=== PATIENT | female | born 1940 | race Caucasian/White ===

== ENCOUNTER 2018-11-04 07:41 | Inpatient (IN) | payer MEDICARE, BC ==
[~2018-11-04] VITALS: Ht 162.6 cm; Wt 75.0 kg
[~2018-11-04 07:41] MED LIST: ALBU2.5V7 NEB; ASCO-205 PO; ATOR80TA PO; BIOT0.5P PO; CALC-1197 PO; ERGO400C PO; EZET10TA14 PO; GUAI-652 PO; HYDR-4353 PO; INSU100C4 SQ; LANTUS SUBCUT; LEVO137T24 PO; LEVO500T2 PO; LOSA100T15 PO; LYSI100013 PO; MAGN400T39 PO; META800T87 PO; MULT-1074 PO; OMEG1CAP21 PO; OXYB5TAB11 PO; TRIA1CAP6 PO; VITA400C65 PO; ZINC50TA4 PO; [UNRECOGNIZED DRUG - CODE] PO
[2018-11-04 08:14] LABS: BASOPHILS % (AUTO) 0.3 % (0-1); EOSINOPHILS # (AUTO) 0.2 X10'3 (0-0.9); EOSINOPHILS % (AUTO) 1.9 % (0-6); HEMOGLOBIN 13.4 g/dl (12.0-16.0); LYMPHOCYTES # (AUTO) 0.9 X10'3 (1.1-4.8); LYMPHOCYTES % (AUTO) 7.7 % (21-51); MEAN CORPUSCULAR HGB CONC 33.5 % (33.0-36.5); MEAN CORPUSCULAR VOLUME 89.3 FL (78-98); MEAN PLATELET VOLUME 7.8 FL (7.4-10.4); MONOCYTES # (AUTO) 1.1 X10'3 (0-0.9); MONOCYTES % (AUTO) 9.5 % (2-12); NEUTROPHILS # (AUTO) 9.4 X10'3 (1.8-7.7); NEUTROPHILS % (AUTO) 80.6 % (42-75); PLATELET COUNT 299 X10'3 (140-440); RED BLOOD COUNT 4.48 X10'6 (4.20-5.60); RED CELL DISTRIBUTION WIDTH 13.9 % (11.5-14.5); WHITE BLOOD COUNT 11.7 X10'3 (4.5-11.0)
[2018-11-04 08:23] LABS: CLARITY,URINE SLIGHTLY CLOUDY (Clear); COLOR,URINE YELLOW (Yellow); GLUCOSE, URINE >=1000 mg/dl (Neg); KETONES,URINE 40 mg/dl (Neg); LEUKOCYTE ESTERASE ,URINE NEGATIVE (Neg); NITRITES, URINE POSITIVE (Neg); OCCULT BLOOD,URINE SMALL (Neg); PROTEIN,URINE NEGATIVE (Neg); UROBILINOGEN,URINE 0.2 E.U/dL (0.2-1.0)
[2018-11-04 08:29] LABS: UA COLLECTION TYPE CLN CATCH MIDSTREAM
[2018-11-04 08:36] LABS: BACTERIA,URINE 4+ /HPF (Neg); SQUAMOUS EPITHELIAL CELL,UR FEW /LPF (FEW); WBC CLUMPS,URINE MODERATE /HPF (NEGATIVE)
[2018-11-04 08:38] LABS: ALANINE AMINOTRANSFERASE 32 U/L (12-78); ALBUMIN/GLOBULIN RATIO 1.2 (1.1-1.5); ALKALINE PHOSPHATASE 85 IU/L (46-116); ANION GAP 11 (8-16); ASPARTATE AMINO TRANSFERASE 28 U/L (10-37); BILIRUBIN,TOTAL 0.9 MG/DL (0.1-1.0); BLOOD UREA NITROGEN 10 MG/DL (7-18); BUN/CREATININE RATIO 11.2 (6.6-38.0); CALCIUM 8.7 MG/DL (8.5-10.1); CHLORIDE 91 MMOL/L (99-107); CREATININE 0.89 MG/DL (0.40-0.90); GLUCOSE 276 MG/DL (70-104); POTASSIUM 4.3 MMOL/L (3.5-5.1); SODIUM 128 MMOL/L (135-145); TOTAL CARBON DIOXIDE 25.8 MMOL/L (24-32); TOTAL PROTEIN 7.3 G/DL (6.4-8.2); eGFR 61 ML/MIN
[2018-11-04 08:41] LABS: PROTHROMBIN TIME 10.3 SECONDS (9.0-12.0)
[2018-11-04 08:42] LABS: PARTIAL THROMBOPLASTIN TIME 32 SECONDS (22-32)
[2018-11-04] MEDS ORDERED: normal saline 1000ML IV soln IVB ONE (08:50)
[2018-11-04] MEDS ORDERED: dexamethasone sod phosphate 10mg/ml inj IV STA (08:50)
[2018-11-04] MEDS ORDERED: CefTRIAXone 2gm/D5W 50ml 50 ML IV ONE (08:50)
[2018-11-04] MEDS ORDERED: azithromycin 250mg tablet PO ONE (09:30)
[2018-11-04 10:40] LABS: D-DIMER 0.45 MG/L FEU (0-0.50)
[2018-11-04] MEDS ORDERED: potassium Cl 20 mEq SR tablet PO PRN ×2 (10:40)
[2018-11-04] MEDS ORDERED: mag hydrox/Alum hydrox/simeth 30ml oral suspension PO PRN (10:40)
[2018-11-04] MEDS ORDERED: magnesium hydroxide 30ml (MOM) UD suspension PO PRN (10:40)
[2018-11-04] MEDS ORDERED: acetaminophen 325mg tablet PO PRN ×2 (10:40)
[2018-11-04] MEDS ORDERED: magnesium Cl slow-release 64mg tablet PO PRN (10:40)
[2018-11-04] MEDS ORDERED: ondansetron/PF 4mg/2ml inj IV PRN (10:40)
[2018-11-04] MEDS ORDERED: MESSAGE TO PHARMACY PO ONE (10:40)
[2018-11-04] MEDS ORDERED: magnesium 4gm in 100ml NS 100 ML IV PRN (10:40)
[2018-11-04] MEDS ORDERED: dextrose ORAL solution 15 GM/59 ML bottle PO PRN ×2 (10:40)
[2018-11-04] MEDS ORDERED: potassium Cl 40MEQ/NS 500ml 500 ML IV PRN ×2 (10:40)
[2018-11-04] MEDS ORDERED: dextrose 50%-water 50ml dispensing syringe IV PRN ×2 (10:40)
[2018-11-04] MEDS ORDERED: glucagon, human recombinant 1mg kit SUBCUT PRN (10:40)
[2018-11-04] MEDS: normal saline 1000ml 1,000 ML IV SCH (11:00)
[2018-11-04] MEDS ORDERED: MIRA50TA PO (11:34)
[2018-11-04] MEDS ORDERED: XAL0.005OS OP (11:34)
[2018-11-04] MEDS ORDERED: LANTUS SQ (11:34)
[2018-11-04] MEDS ORDERED: ATOR80TA PO (11:34)
[2018-11-04] MEDS ORDERED: TRIA1CAP6 PO (11:34)
[2018-11-04] MEDS ORDERED: INSU100C4 SQ (11:34)
[2018-11-04] MEDS ORDERED: ESTR42.510 TOP (11:34)
[2018-11-04] MEDS ORDERED: NITR100C PO (11:34)
[2018-11-04] MEDS ORDERED: SYN0.112T PO (11:34)
[2018-11-04] MEDS ORDERED: EZET10TA13 PO (11:34)
[2018-11-04 11:47] LABS: HEMOGLOBIN A1C 7.9 % (4.5-6.2)
[2018-11-04 13:15] VITALS: BP 154/78
[2018-11-04] MEDS: albuterol 2.5 MG/3 ML nebule NEB SCH (14:00)
[2018-11-04] MEDS: benzonatate 100mg capsule PO SCH ×2 (14:27→20:08)
[2018-11-04 15:00] VITALS: BP 127/63
[2018-11-04] MEDS ORDERED: diltiazem-NS 100mg/100ml 100 ML IV SCH (16:10)
[2018-11-04] MEDS: diltiazem-D5W 125mg/125ml 125 ML IV SCH (16:15)
[2018-11-04 18:00] VITALS: BP 116/55
[2018-11-04] MEDS: insulin Lispro (HumaLOG) vial - multi-dose SQ SCH ×2 (18:47→21:15)
[2018-11-04] MEDS: nitrofurantoin macrocrystal 100mg capsule PO SCH (20:07)
[2018-11-04] MEDS: oxybutynin 5mg tablet PO SCH (20:08)
[2018-11-04] MEDS: atorvastatin 20mg tablet PO SCH (20:08)
[2018-11-04] MEDS ORDERED: temazepam 15mg capsule PO PRN (21:00)
[2018-11-04] MEDS: insulin glargine (Lantus) pen - multi-dose SQ SCH (21:18)
[2018-11-04 22:00] VITALS: BP 138/64
[2018-11-05] VITALS (7 sets, daily range): BP systolic 111–153; BP diastolic 49–76
[2018-11-05] MEDS: normal saline 1000ml 1,000 ML IV SCH ×3 (00:06→21:49)
[2018-11-05] MEDS: benzonatate 100mg capsule PO SCH ×4 (02:01→19:05)
[2018-11-05 06:02] LABS: BASOPHILS % (AUTO) 0.3 % (0-1); EOSINOPHILS # (AUTO) 0.2 X10'3 (0-0.9); EOSINOPHILS % (AUTO) 2.2 % (0-6); HEMATOCRIT 35.4 % (35.0-45.0); HEMOGLOBIN 11.8 g/dl (12.0-16.0); LYMPHOCYTES # (AUTO) 0.8 X10'3 (1.1-4.8); LYMPHOCYTES % (AUTO) 9.8 % (21-51); MEAN CORPUSCULAR HEMOGLOBIN 29.8 PG (27.0-31.0); MEAN CORPUSCULAR HGB CONC 33.4 % (33.0-36.5); MEAN CORPUSCULAR VOLUME 89.1 FL (78-98); MEAN PLATELET VOLUME 7.9 FL (7.4-10.4); MONOCYTES # (AUTO) 0.8 X10'3 (0-0.9); NEUTROPHILS # (AUTO) 6.3 X10'3 (1.8-7.7); NEUTROPHILS % (AUTO) 77.7 % (42-75); PLATELET COUNT 270 X10'3 (140-440); RED BLOOD COUNT 3.97 X10'6 (4.20-5.60); WHITE BLOOD COUNT 8.1 X10'3 (4.5-11.0)
[2018-11-05] MEDS: albuterol 2.5 MG/3 ML nebule NEB SCH (07:56)
[2018-11-05] MEDS ORDERED: levoTHYROXINE 112mcg tablet PO SCH (08:00)
[2018-11-05] MEDS: K and/or MAG REPLACEMENT MC SCH (08:00)
[2018-11-05] MEDS: nitrofurantoin macrocrystal 100mg capsule PO SCH ×2 (08:28→19:06)
[2018-11-05] MEDS: azithromycin 250mg tablet PO SCH (08:31)
[2018-11-05] MEDS: triamterene/HCTZ 37.5/25mg tablet PO SCH (08:32)
[2018-11-05] MEDS: oxybutynin 5mg tablet PO SCH ×3 (08:32→21:14)
[2018-11-05] MEDS: enoxaparin 40mg/0.4ml syringe SUBCUT SCH (08:34)
[2018-11-05] MEDS: CefTRIAXone 2gm/D5W 50ml 50 ML IV SCH (08:35)
[2018-11-05] MEDS: insulin Lispro (HumaLOG) vial - multi-dose SQ SCH ×3 (08:47→18:57)
[2018-11-05 09:04] LABS: GLUCOSE 244 MG/DL (70-104)
[2018-11-05 09:05] LABS: ALANINE AMINOTRANSFERASE 26 U/L (12-78); ALBUMIN 3.2 G/DL (3.4-5.0); ALBUMIN/GLOBULIN RATIO 1.1 (1.1-1.5); ALKALINE PHOSPHATASE 67 IU/L (46-116); ANION GAP 11 (8-16); ASPARTATE AMINO TRANSFERASE 22 U/L (10-37); BILIRUBIN,TOTAL 0.5 MG/DL (0.1-1.0); BLOOD UREA NITROGEN 10 MG/DL (7-18); BUN/CREATININE RATIO 13.5 (6.6-38.0); CALCIUM 7.9 MG/DL (8.5-10.1); CHLORIDE 100 MMOL/L (99-107); CREATININE 0.74 MG/DL (0.40-0.90); POTASSIUM 3.8 MMOL/L (3.5-5.1); SODIUM 135 MMOL/L (135-145); TOTAL CARBON DIOXIDE 24.5 MMOL/L (24-32); TOTAL PROTEIN 6.2 G/DL (6.4-8.2); eGFR 76 ML/MIN
[2018-11-05] MEDS ORDERED: HYDROcodone & chlorphen. 10-8mg/5ml oral susp. PO PRN (15:25)
[2018-11-05] MEDS: diltiazem-D5W 125mg/125ml 125 ML IV SCH (17:15)
[2018-11-05] MEDS: lisinopril 5mg tablet PO SCH (18:17)
[2018-11-05] MEDS: lactobacillus rhamnosus 10,000 MMU CELLS/CAPSULE PO SCH (19:05)
[2018-11-05] MEDS: carVEDilol 12.5mg tablet PO SCH (19:07)
[2018-11-05] MEDS: atorvastatin 20mg tablet PO SCH (21:14)
[2018-11-05] MEDS: insulin glargine (Lantus) pen - multi-dose SQ SCH (21:20)
[2018-11-06] MEDS: benzonatate 100mg capsule PO SCH ×3 (02:06→14:11)
[2018-11-06 03:00] VITALS: BP 138/60
[2018-11-06 06:00] LABS: BASOPHILS # (AUTO) 0.1 X10'3 (0-0.2); BASOPHILS % (AUTO) 0.9 % (0-1); EOSINOPHILS # (AUTO) 0.3 X10'3 (0-0.9); EOSINOPHILS % (AUTO) 4.9 % (0-6); HEMOGLOBIN 11.1 g/dl (12.0-16.0); LYMPHOCYTES # (AUTO) 1.2 X10'3 (1.1-4.8); LYMPHOCYTES % (AUTO) 20.2 % (21-51); MEAN CORPUSCULAR HEMOGLOBIN 29.7 PG (27.0-31.0); MEAN CORPUSCULAR HGB CONC 33.4 % (33.0-36.5); MEAN CORPUSCULAR VOLUME 88.8 FL (78-98); MEAN PLATELET VOLUME 7.8 FL (7.4-10.4); MONOCYTES # (AUTO) 0.7 X10'3 (0-0.9); MONOCYTES % (AUTO) 11.4 % (2-12); NEUTROPHILS # (AUTO) 3.6 X10'3 (1.8-7.7); NEUTROPHILS % (AUTO) 62.6 % (42-75); PLATELET COUNT 256 X10'3 (140-440); RED BLOOD COUNT 3.72 X10'6 (4.20-5.60); RED CELL DISTRIBUTION WIDTH 14.2 % (11.5-14.5); WHITE BLOOD COUNT 5.8 X10'3 (4.5-11.0)
[2018-11-06 06:33] LABS: ALANINE AMINOTRANSFERASE 27 U/L (12-78); ALBUMIN 3.1 G/DL (3.4-5.0); ALBUMIN/GLOBULIN RATIO 1.1 (1.1-1.5); ALKALINE PHOSPHATASE 63 IU/L (46-116); ANION GAP 6 (8-16); ASPARTATE AMINO TRANSFERASE 32 U/L (10-37); BILIRUBIN,TOTAL 0.4 MG/DL (0.1-1.0); BLOOD UREA NITROGEN 10 MG/DL (7-18); BUN/CREATININE RATIO 14.1 (6.6-38.0); CALCIUM 7.7 MG/DL (8.5-10.1); CHLORIDE 101 MMOL/L (99-107); CREATININE 0.71 MG/DL (0.40-0.90); GLUCOSE 149 MG/DL (70-104); MAGNESIUM 1.9 MG/DL (1.5-2.4); POTASSIUM 3.5 MMOL/L (3.5-5.1); SODIUM 136 MMOL/L (135-145); TOTAL CARBON DIOXIDE 28.8 MMOL/L (24-32); TOTAL PROTEIN 5.8 G/DL (6.4-8.2); eGFR 79 ML/MIN
[2018-11-06 07:00] VITALS: BP 138/63
[2018-11-06] MEDS ORDERED: levoTHYROXINE 100mcg tablet PO SCH (08:00)
[2018-11-06] MEDS: K and/or MAG REPLACEMENT MC SCH (08:00)
[2018-11-06] MEDS: nitrofurantoin macrocrystal 100mg capsule PO SCH (08:45)
[2018-11-06] MEDS: CefTRIAXone 2gm/D5W 50ml 50 ML IV SCH (08:49)
[2018-11-06] MEDS: azithromycin 250mg tablet PO SCH (08:49)
[2018-11-06] MEDS: lactobacillus rhamnosus 10,000 MMU CELLS/CAPSULE PO SCH (08:50)
[2018-11-06] MEDS: triamterene/HCTZ 37.5/25mg tablet PO SCH (08:52)
[2018-11-06] MEDS: oxybutynin 5mg tablet PO SCH ×2 (08:53→13:46)
[2018-11-06] MEDS: carVEDilol 12.5mg tablet PO SCH (08:53)
[2018-11-06] MEDS: lisinopril 5mg tablet PO SCH (08:54)
[2018-11-06] MEDS: enoxaparin 40mg/0.4ml syringe SUBCUT SCH (08:55)
[2018-11-06] MEDS: insulin Lispro (HumaLOG) vial - multi-dose SQ SCH ×2 (09:05→13:45)
[2018-11-06 11:00] VITALS: BP 129/56
[2018-11-06] MEDS ORDERED: LEVO500T2 PO (11:49)
[2018-11-06] MEDS ORDERED: CARV-50 PO (11:49)
[2018-11-06] MEDS ORDERED: LANTUS SQ (11:52)
[2018-11-06] MEDS ORDERED: LEVO100T9 PO (13:58)
== END 2018-11-06 14:35 | disposition home or self-care (01) | DRG 871 ==
LOC: ER 07:42 → ED HOLD 10:53 → PCU 3S 13:41
PROVIDERS: ADMIT Internal Medicine; ATTEND Internal Medicine
DX: A41.9 Sepsis, unspecified organism (principal); J18.1 Lobar pneumonia, unspecified organism; E87.1 Hypo-osmolality and hyponatremia; N39.0 Urinary tract infection, site not specified; E03.9 Hypothyroidism, unspecified; E86.0 Dehydration; B96.1 Klebsiella pneumoniae [K. pneumoniae] as the cause of diseases classified elsewhere; I10 Essential (primary) hypertension; E10.65 Type 1 diabetes mellitus with hyperglycemia; E78.2 Mixed hyperlipidemia; J20.9 Acute bronchitis, unspecified; J45.909 Unspecified asthma, uncomplicated; E07.9 Disorder of thyroid, unspecified; G89.29 Other chronic pain; M54.9 Dorsalgia, unspecified; R06.03 Acute respiratory distress; Z90.710 Acquired absence of both cervix and uterus; Z79.4 Long term (current) use of insulin; Z79.899 Other long term (current) drug therapy; Z88.2 Allergy status to sulfonamides; Z83.3 Family history of diabetes mellitus; Z82.5 Family history of asthma and other chronic lower respiratory diseases; Z84.89 Family history of other specified conditions
CPT/HCPCS: 36415; 71045; 80053; 81001; 82948; 83036; 83605; 83735; 84145; 84439; 84443; 85025; 85379; 85610; 85730; 87040; 87070; 87077; 87088; 87186; 93005; 94640; 94760; 96365; 96368; 99285; G0378; J0696; J1100; J1650; J1815; J3490; J7030

== ENCOUNTER 2018-11-07 10:23 | Emergency (ER) | payer MEDICARE, BC ==
[~2018-11-07] VITALS: Ht 165.1 cm; Wt 75.0 kg
[~2018-11-07 10:23] MED LIST changes: -ALBU2.5V7 NEB; -ASCO-205 PO; -BIOT0.5P PO; -CALC-1197 PO; +CARV-50 PO; -ERGO400C PO; +EZET10TA13 PO; -EZET10TA14 PO; -GUAI-652 PO; -HYDR-4353 PO; +LANTUS SQ; -LANTUS SUBCUT; +LEVO100T9 PO; -LEVO137T24 PO; -LOSA100T15 PO; -LYSI100013 PO; -MAGN400T39 PO; -META800T87 PO; -MULT-1074 PO; -OMEG1CAP21 PO; -OXYB5TAB11 PO; -VITA400C65 PO; +XAL0.005OS OP; -ZINC50TA4 PO; -[UNRECOGNIZED DRUG - CODE] PO
[2018-11-07 11:40] LABS: BASOPHILS # (AUTO) 0.1 X10'3 (0-0.2); EOSINOPHILS # (AUTO) 0.2 X10'3 (0-0.9); EOSINOPHILS % (AUTO) 3.2 % (0-6); HEMATOCRIT 38.9 % (35.0-45.0); LYMPHOCYTES # (AUTO) 0.6 X10'3 (1.1-4.8); LYMPHOCYTES % (AUTO) 10.3 % (21-51); MEAN CORPUSCULAR HEMOGLOBIN 29.7 PG (27.0-31.0); MEAN CORPUSCULAR HGB CONC 33.5 % (33.0-36.5); MEAN CORPUSCULAR VOLUME 88.4 FL (78-98); MEAN PLATELET VOLUME 7.7 FL (7.4-10.4); MONOCYTES # (AUTO) 0.6 X10'3 (0-0.9); MONOCYTES % (AUTO) 10.3 % (2-12); NEUTROPHILS # (AUTO) 4.5 X10'3 (1.8-7.7); NEUTROPHILS % (AUTO) 75.2 % (42-75); PLATELET COUNT 299 X10'3 (140-440); RED BLOOD COUNT 4.39 X10'6 (4.20-5.60); RED CELL DISTRIBUTION WIDTH 13.8 % (11.5-14.5)
[2018-11-07 11:59] LABS: ALANINE AMINOTRANSFERASE 31 U/L (12-78); ALBUMIN 3.5 G/DL (3.4-5.0); ALBUMIN/GLOBULIN RATIO 1.1 (1.1-1.5); ALKALINE PHOSPHATASE 74 IU/L (46-116); ANION GAP 9 (8-16); ASPARTATE AMINO TRANSFERASE 32 U/L (10-37); BILIRUBIN,TOTAL 0.5 MG/DL (0.1-1.0); BLOOD UREA NITROGEN 7 MG/DL (7-18); BUN/CREATININE RATIO 11.1 (6.6-38.0); CALCIUM 8.5 MG/DL (8.5-10.1); CHLORIDE 94 MMOL/L (99-107); CREATININE 0.63 MG/DL (0.40-0.90); GLUCOSE 261 MG/DL (70-104); POTASSIUM 3.9 MMOL/L (3.5-5.1); SODIUM 130 MMOL/L (135-145); TOTAL CARBON DIOXIDE 27.1 MMOL/L (24-32); TOTAL PROTEIN 6.8 G/DL (6.4-8.2); eGFR > 90 ML/MIN
[2018-11-07 12:05] LABS: CLARITY,URINE CLEAR (Clear); COLOR,URINE YELLOW (Yellow); GLUCOSE, URINE >=1000 mg/dl (Neg); KETONES,URINE 15 mg/dl (Neg); LEUKOCYTE ESTERASE ,URINE NEGATIVE (Neg); NITRITES, URINE NEGATIVE (Neg); OCCULT BLOOD,URINE TRACE-INTACT (Neg); PH,URINE 6.5 (4.8-8.0); PROTEIN,URINE NEGATIVE (Neg); UROBILINOGEN,URINE 0.2 E.U/dL (0.2-1.0)
[2018-11-07 12:10] LABS: BACTERIA,URINE NONE SEEN /HPF (Neg); MUCUS STRANDS NONE SEEN /LPF (Neg); RBC,URINE 0-2 /HPF (0-2); SQUAMOUS EPITHELIAL CELL,UR NONE SEEN /LPF (FEW); UA COLLECTION TYPE CLN CATCH MIDSTREAM; WBC,URINE 0-4 /HPF (0-4)
[2018-11-07 13:34] VITALS: BP 133/68
== END 2018-11-07 13:42 | disposition home or self-care (01) ==
LOC: ER 10:27
DX: R53.1 Weakness (principal); J18.9 Pneumonia, unspecified organism; I10 Essential (primary) hypertension; J45.909 Unspecified asthma, uncomplicated; E11.9 Type 2 diabetes mellitus without complications; E03.9 Hypothyroidism, unspecified; G89.29 Other chronic pain; Z90.710 Acquired absence of both cervix and uterus; Z90.89 Acquired absence of other organs; Z88.2 Allergy status to sulfonamides; Z88.8 Allergy status to other drugs, medicaments and biological substances; Z79.2 Long term (current) use of antibiotics; Z79.4 Long term (current) use of insulin; Z79.899 Other long term (current) drug therapy
CPT/HCPCS: 36415; 71045; 80053; 81001; 85025; 87502; 87503; 93005; 99284

== ENCOUNTER 2018-12-07 07:08 | Inpatient (IN) | payer MEDICARE, BC ==
[2018-12-07] VITALS (19 sets, daily range): BP systolic 125–175; BP diastolic 52–96
[~2018-12-07] VITALS: Ht 162.6 cm; Wt 76.0 kg
[~2018-12-07 07:08] MED LIST changes: -LEVO500T2 PO
[2018-12-07] MEDS ORDERED: HYDROcodone/acetaminophen 10/325mg tab PO ONE (07:30)
[2018-12-07 07:53] LABS: BASOPHILS % (AUTO) 0.5 % (0-1); EOSINOPHILS # (AUTO) 0.1 X10'3 (0-0.9); EOSINOPHILS % (AUTO) 0.7 % (0-6); HEMATOCRIT 41.2 % (35.0-45.0); HEMOGLOBIN 13.8 g/dl (12.0-16.0); LYMPHOCYTES # (AUTO) 0.7 X10'3 (1.1-4.8); LYMPHOCYTES % (AUTO) 9.4 % (21-51); MEAN CORPUSCULAR HEMOGLOBIN 29.5 PG (27.0-31.0); MEAN CORPUSCULAR HGB CONC 33.4 % (33.0-36.5); MEAN CORPUSCULAR VOLUME 88.4 FL (78-98); MEAN PLATELET VOLUME 8.1 FL (7.4-10.4); MONOCYTES # (AUTO) 0.4 X10'3 (0-0.9); MONOCYTES % (AUTO) 5.2 % (2-12); NEUTROPHILS # (AUTO) 6.4 X10'3 (1.8-7.7); NEUTROPHILS % (AUTO) 84.2 % (42-75); PLATELET COUNT 290 X10'3 (140-440); RED BLOOD COUNT 4.66 X10'6 (4.20-5.60); WHITE BLOOD COUNT 7.6 X10'3 (4.5-11.0)
[2018-12-07 08:10] LABS: ALANINE AMINOTRANSFERASE 38 U/L (12-78); ALBUMIN 3.8 G/DL (3.4-5.0); ALBUMIN/GLOBULIN RATIO 1.1 (1.1-1.5); ALKALINE PHOSPHATASE 89 IU/L (46-116); ANION GAP 10 (8-16); ASPARTATE AMINO TRANSFERASE 26 U/L (10-37); BILIRUBIN,TOTAL 0.6 MG/DL (0.1-1.0); BLOOD UREA NITROGEN 15 MG/DL (7-18); BUN/CREATININE RATIO 17.2 (6.6-38.0); CHLORIDE 94 MMOL/L (99-107); CREATININE 0.87 MG/DL (0.40-0.90); GLUCOSE 336 MG/DL (70-104); POTASSIUM 4.6 MMOL/L (3.5-5.1); SODIUM 131 MMOL/L (135-145); TOTAL CARBON DIOXIDE 26.6 MMOL/L (24-32); TOTAL PROTEIN 7.3 G/DL (6.4-8.2); eGFR 63 ML/MIN
--- NOTE | 2018-12-07 08:46 | NUR ---
Pt to CT scan of pelvis, returned via wheelchair. Donnell well.
--- NOTE | 2018-12-07 08:53 | NUR ---
[place] pain medication ordered and offered but patient still declines at this time, states her pain has subsided quite a bit. Aware that it is available should she need it.
[2018-12-07 09:23] LABS: CLARITY,URINE CLEAR (Clear); COLOR,URINE YELLOW (Yellow); GLUCOSE, URINE >=1000 mg/dl (Neg); KETONES,URINE 15 mg/dl (Neg); LEUKOCYTE ESTERASE ,URINE NEGATIVE (Neg); NITRITES, URINE NEGATIVE (Neg); OCCULT BLOOD,URINE TRACE-INTACT (Neg); PROTEIN,URINE NEGATIVE (Neg); UROBILINOGEN,URINE 0.2 E.U/dL (0.2-1.0)
[2018-12-07 09:33] LABS: UA COLLECTION TYPE CLN CATCH MIDSTREAM
[2018-12-07 09:35] LABS: SQUAMOUS EPITHELIAL CELL,UR FEW /LPF (FEW); WBC CLUMPS,URINE FEW /HPF (NEGATIVE)
[2018-12-07 09:36] LABS: BACTERIA,URINE 1+ /HPF (Neg); RBC,URINE 0-2 /HPF (0-2)
--- NOTE | 2018-12-07 09:59 | NUR ---
surgeon at bedside
[2018-12-07] MEDS ORDERED: ondansetron/PF 4mg/2ml inj IV PRN ×2 (10:10→13:20)
[2018-12-07] MEDS: K and/or MAG REPLACEMENT MC SCH (10:10)
[2018-12-07] MEDS ORDERED: magnesium 2GM in 50ml NS 50 ML IV PRN (10:10)
[2018-12-07] MEDS ORDERED: HYDROmorphone inj. 0.5 MG/0.5 ML DISP.SYRIN IV PRN (10:10)
[2018-12-07] MEDS ORDERED: magnesium hydroxide 30ml (MOM) UD suspension PO PRN (10:10)
[2018-12-07] MEDS ORDERED: potassium Cl 20 mEq SR tablet PO PRN ×2 (10:10)
[2018-12-07] MEDS ORDERED: potassium Cl 40MEQ/NS 500ml 500 ML IV PRN ×2 (10:10)
[2018-12-07] MEDS ORDERED: acetaminophen 325mg tablet PO PRN ×2 (10:10)
[2018-12-07] MEDS ORDERED: magnesium Cl slow-release 64mg tablet PO PRN (10:10)
[2018-12-07] MEDS ORDERED: mag hydrox/Alum hydrox/simeth 30ml oral suspension PO PRN (10:10)
[2018-12-07] MEDS ORDERED: LOSA100T3 PO (10:10)
[2018-12-07] MEDS ORDERED: magnesium 4gm in 100ml NS 100 ML IV PRN (10:10)
[2018-12-07] MEDS ORDERED: HYDROcodone/acetaminophen 5mg/325mg tablet PO PRN (10:10)
[2018-12-07] MEDS ORDERED: CARV-50 PO (10:11)
[2018-12-07 10:43] LABS: PARTIAL THROMBOPLASTIN TIME 31 SECONDS (22-32); PROTHROMBIN TIME 10.5 SECONDS (9.0-12.0)
[2018-12-07] MEDS: normal saline 1000ml 1,000 ML IV SCH ×2 (11:03→17:00)
[2018-12-07] MEDS ORDERED: ceFAZolin 1000mg inj ONE (11:57)
[2018-12-07] MEDS ORDERED: BUPIVAcaine/PF 2.5mg/ml (0.25%) 10ml vial ONE (11:57)
[2018-12-07] MEDS ORDERED: sevoflurane 250ml liquid IH ONE (12:16)
[2018-12-07] MEDS ORDERED: fentaNYL/PF 50MCG/1 ML 2ML syringe ONE ×2 (12:19→12:20)
[2018-12-07] MEDS ORDERED: midazolam 2 mg/2 ml injection ONE (12:20)
[2018-12-07] MEDS ORDERED: rocuronium 10mg/ml inj IV ONE (12:20)
[2018-12-07] MEDS ORDERED: propofol inj 20 ML IV ONE (12:20)
[2018-12-07] MEDS ORDERED: glycopyrrolate 0.2mg/ml inj ONE (13:15)
[2018-12-07] MEDS ORDERED: neostigmine methylsulfate 1 MG/ML 10ml vial ONE (13:15)
--- NOTE | 2018-12-07 13:17 | NUR ---
Received from OR via [facility], accompanied by Anesthesiologist DR SAUL and report given by Anesthesiologist. PT DROWSY, DENIES PAIN, PT W/2 ABDOMINAL LAP SITES W/BAND AIDS CDI. Addendum: 12/07/18 at 1346 by María Elena Roy RN Amended: Links added.
[2018-12-07] MEDS ORDERED: ringers solution, lacted 1,000 ML IV SCH (13:19)
[2018-12-07] MEDS ORDERED: meperidine/PF 25mg/ml syringe IV PRN ×2 (13:20)
[2018-12-07] MEDS ORDERED: proCHLORperazine 10 MG/2 ml inj IV PRN (13:20)
[2018-12-07] MEDS ORDERED: morphine 4 MG/ML inj SYRINge IV PRN ×2 (13:20)
[2018-12-07] MEDS ORDERED: LEVO112T5 PO (13:38)
[2018-12-07] MEDS: meperidine/PF 25mg/ml syringe IV PRN ×2 (14:02→14:33)
--- NOTE | 2018-12-07 14:47 | NUR ---
Report called to receiving nurse. Transferred via GURNEY, 1 BAG OF PT Belongings BAG SENT W/PT TO ROOM 347A, RECEIVING RN AT BEDSIDE TO RECEIVE PT, BLL, CALL LIGHT GIVEN, SIDE RAILS UP X 2, AT BEDSIDE. Special Issues communicated to receiving nurse. YES. Addendum: 12/07/18 at 1509 by María Elena Roy RN Amended: Links added.
--- NOTE | 2018-12-07 15:00 | NUR ---
Pt rec from OR via bed. Transferred to bed via slideboard. Pt awake alert and oriented; drowsy. VSS. Bandaids to lap sites, clean dry and intact. Denies need for pain medication, states just a "little uncomfortable". Abd soft, hypo bowel sounds.
[2018-12-07] MEDS ORDERED: dextrose 50%-water 50ml dispensing syringe IV PRN ×2 (15:35)
[2018-12-07] MEDS ORDERED: MESSAGE TO PHARMACY PO ONE (15:35)
[2018-12-07] MEDS ORDERED: glucagon, human recombinant 1mg kit SUBCUT PRN (15:35)
[2018-12-07] MEDS ORDERED: dextrose ORAL solution 15 GM/59 ML bottle PO PRN ×2 (15:35)
[2018-12-07] MEDS: HYDROcodone/acetaminophen 10/325mg tab PO PRN (17:00)
[2018-12-07] MEDS: insulin Lispro (HumaLOG) vial - multi-dose SQ SCH (17:25)
--- NOTE | 2018-12-07 17:34 | NUR ---
Pt type I diabetic, started on Humalog with accucheck of 252 per Hyperglycemia management protocol orders.
--- NOTE | 2018-12-07 18:49 | NUR ---
Patient in room COLT 347. I have received report from ZAMZAM Carreon and had the opportunity to ask questions and assume patient care.
[2018-12-07] MEDS: HYDROmorphone 1 mg/ml syringe IV PRN ×2 (19:03→23:19)
[2018-12-07] MEDS ORDERED: temazepam 15mg capsule PO PRN (21:00)
[2018-12-07] MEDS ORDERED: insulin glargine (Lantus) pen - multi-dose SQ SCH (21:00)
[2018-12-07] MEDS: atorvastatin 20mg tablet PO SCH (21:25)
[2018-12-07] MEDS: latanoprost 0.005% 2.5ml ophthalmic drops EACHEYE SCH (21:25)
[2018-12-07] MEDS: docusate sod 100mg capsule PO SCH (21:25)
[2018-12-07] MEDS: insulin glargine (Lantus) pen - multi-dose SQ SCH (21:38)
[2018-12-08] MEDS: normal saline 1000ml 1,000 ML IV SCH ×2 (02:07→19:24)
[2018-12-08] MEDS: HYDROmorphone 1 mg/ml syringe IV PRN (04:41)
[2018-12-08 05:26] LABS: ALBUMIN 3.3 G/DL (3.4-5.0); ANION GAP 9 (8-16); BLOOD UREA NITROGEN 10 MG/DL (7-18); BUN/CREATININE RATIO 12.8 (6.6-38.0); CALCIUM 7.6 MG/DL (8.5-10.1); CHLORIDE 98 MMOL/L (99-107); CREATININE 0.78 MG/DL (0.40-0.90); GLUCOSE 192 MG/DL (70-104); HEMATOCRIT 38.4 % (35.0-45.0); HEMOGLOBIN 13.1 g/dl (12.0-16.0); MAGNESIUM 1.7 MG/DL (1.5-2.4); MEAN CORPUSCULAR HEMOGLOBIN 30.6 PG (27.0-31.0); MEAN CORPUSCULAR HGB CONC 34.1 % (33.0-36.5); MEAN CORPUSCULAR VOLUME 89.8 FL (78-98); MEAN PLATELET VOLUME 8.6 FL (7.4-10.4); PLATELET COUNT 279 X10'3 (140-440); RED BLOOD COUNT 4.28 X10'6 (4.20-5.60); RED CELL DISTRIBUTION WIDTH 13.2 % (11.5-14.5); SODIUM 133 MMOL/L (135-145); TOTAL CARBON DIOXIDE 25.7 MMOL/L (24-32); WHITE BLOOD COUNT 7.3 X10'3 (4.5-11.0); eGFR 71 ML/MIN
--- NOTE | 2018-12-08 06:30 | NUR ---
Patient in room COLT 347. I have received report from Iris WYMAN and had the opportunity to ask questions and assume patient care.
--- NOTE | 2018-12-08 06:41 | NUR ---
Problems reprioritized. Patient report given, questions answered & plan of care reviewed with ZAMZAM Martínez.
[2018-12-08 07:00] VITALS: BP 125/50
[2018-12-08] MEDS: K and/or MAG REPLACEMENT MC SCH (08:00)
[2018-12-08] MEDS: docusate sod 100mg capsule PO SCH ×2 (08:55→19:23)
[2018-12-08] MEDS: ezetimibe 10mg tablet PO SCH (08:55)
[2018-12-08] MEDS: losartan 50mg tablet PO SCH (08:56)
[2018-12-08] MEDS: levoTHYROXINE 112mcg tablet PO SCH (08:56)
[2018-12-08] MEDS: insulin Lispro (HumaLOG) vial - multi-dose SQ SCH ×3 (09:01→19:21)
[2018-12-08 11:00] VITALS: BP 136/74
[2018-12-08] MEDS: triamterene/HCTZ 37.5/25mg tablet PO SCH (11:43)
[2018-12-08] MEDS: HYDROcodone/acetaminophen 10/325mg tab PO PRN ×2 (14:51→21:30)
--- NOTE | 2018-12-08 16:00 | NUR ---
Patient's lap site bandage dressing on the mid-upper abdomen was noted bleeding, had to changed the dressing 2x today. Abd pad applied to absorb the drainage, will monitor
--- NOTE | 2018-12-08 18:30 | NUR ---
Patient in room COLT 346. I have received report from ZAMZAM Martínez and had the opportunity to ask questions and assume patient care.
--- NOTE | 2018-12-08 18:41 | NUR ---
Problems reprioritized. Patient report given, questions answered & plan of care reviewed with Iris RN
[2018-12-08 20:00] VITALS: BP 141/70
[2018-12-08] MEDS: insulin glargine (Lantus) pen - multi-dose SQ SCH (21:17)
[2018-12-08] MEDS: atorvastatin 20mg tablet PO SCH (21:18)
[2018-12-08] MEDS: latanoprost 0.005% 2.5ml ophthalmic drops EACHEYE SCH (21:18)
[2018-12-09] VITALS: BP 146/72
[2018-12-09] MEDS: HYDROcodone/acetaminophen 10/325mg tab PO PRN (02:35)
[2018-12-09] MEDS: normal saline 1000ml 1,000 ML IV SCH (03:35)
[2018-12-09 05:39] LABS: ANION GAP 9 (8-16); BLOOD UREA NITROGEN 5 MG/DL (7-18); BUN/CREATININE RATIO 8.1 (6.6-38.0); CALCIUM 7.8 MG/DL (8.5-10.1); CHLORIDE 97 MMOL/L (99-107); CREATININE 0.62 MG/DL (0.40-0.90); GLUCOSE 216 MG/DL (70-104); MAGNESIUM 1.8 MG/DL (1.5-2.4); POTASSIUM 3.5 MMOL/L (3.5-5.1); SODIUM 133 MMOL/L (135-145); TOTAL CARBON DIOXIDE 26.6 MMOL/L (24-32); eGFR > 90 ML/MIN
[2018-12-09 05:48] LABS: HEMOGLOBIN 11.5 g/dl (12.0-16.0); MEAN CORPUSCULAR HEMOGLOBIN 29.9 PG (27.0-31.0); MEAN CORPUSCULAR HGB CONC 33.7 % (33.0-36.5); MEAN CORPUSCULAR VOLUME 88.7 FL (78-98); MEAN PLATELET VOLUME 8.1 FL (7.4-10.4); PLATELET COUNT 222 X10'3 (140-440); RED BLOOD COUNT 3.84 X10'6 (4.20-5.60); RED CELL DISTRIBUTION WIDTH 13.2 % (11.5-14.5); WHITE BLOOD COUNT 5.8 X10'3 (4.5-11.0)
--- NOTE | 2018-12-09 06:36 | NUR ---
Problems reprioritized. Patient report given, questions answered & plan of care reviewed with ZAMZAM Martínez.
--- NOTE | 2018-12-09 06:39 | NUR ---
Patient in room COLT 346. I have received report from Iris WYMAN and had the opportunity to ask questions and assume patient care.
[2018-12-09 07:00] VITALS: BP 155/73
--- NOTE | 2018-12-09 07:45 | NUR ---
Dr. Yost spoke w/ pt regarding pt to be d/cg home today by hospitalist. Pt instructed to eat soups and crackers for a few days.
[2018-12-09] MEDS: K and/or MAG REPLACEMENT MC SCH (08:00)
[2018-12-09] MEDS ORDERED: carvedilol 6.25mg tablet PO SCH (08:00)
[2018-12-09] MEDS: triamterene/HCTZ 37.5/25mg tablet PO SCH (09:17)
[2018-12-09] MEDS: ezetimibe 10mg tablet PO SCH (09:17)
[2018-12-09] MEDS: levoTHYROXINE 112mcg tablet PO SCH (09:17)
[2018-12-09] MEDS: docusate sod 100mg capsule PO SCH (09:18)
[2018-12-09] MEDS: losartan 50mg tablet PO SCH (09:18)
[2018-12-09] MEDS: insulin Lispro (HumaLOG) vial - multi-dose SQ SCH (09:22)
[2018-12-09] MEDS ORDERED: levoFLOXACIN 500mg tablet PO SCH (11:00)
--- NOTE | 2018-12-09 11:07 | NUR ---
Discharge instructions given to patient and verbalized understanding of all instructions made. Peripheral IV catheter removed, tip intact.
--- NOTE | 2018-12-09 11:30 | NUR ---
Patient left the room, discharged home accompanied by her . All belongings sent with the patient
== END 2018-12-09 11:27 | disposition home or self-care (01) | DRG 351 ==
LOC: ER 07:09 → ED HOLD 10:09 → SUR 3N 14:53
PROVIDERS: ADMIT Family Medicine; ATTEND Family Medicine
PROC: 0YU74JZ Supplement Right Femoral Region with Synthetic Substitute, Percutaneous Endoscopic Approach (ICD-10-PCS; principal; 2018-12-07 12:16)
DX: K41.30 Unilateral femoral hernia, with obstruction, without gangrene, not specified as recurrent (principal); E87.1 Hypo-osmolality and hyponatremia; N39.0 Urinary tract infection, site not specified; M81.0 Age-related osteoporosis without current pathological fracture; E78.5 Hyperlipidemia, unspecified; E10.9 Type 1 diabetes mellitus without complications; E03.9 Hypothyroidism, unspecified; H40.9 Unspecified glaucoma; G89.29 Other chronic pain; B96.1 Klebsiella pneumoniae [K. pneumoniae] as the cause of diseases classified elsewhere; M54.9 Dorsalgia, unspecified; I10 Essential (primary) hypertension; J45.909 Unspecified asthma, uncomplicated; Z90.710 Acquired absence of both cervix and uterus; Z88.2 Allergy status to sulfonamides; Z88.8 Allergy status to other drugs, medicaments and biological substances; Z79.899 Other long term (current) drug therapy; Z79.4 Long term (current) use of insulin; Z87.01 Personal history of pneumonia (recurrent); Z87.891 Personal history of nicotine dependence; Z83.3 Family history of diabetes mellitus; Z82.5 Family history of asthma and other chronic lower respiratory diseases; Z84.89 Family history of other specified conditions
CPT/HCPCS: 36415; 71045; 72192; 80048; 80053; 81001; 82948; 83735; 85025; 85027; 85610; 85730; 87070; 87077; 87088; 87186; 93005; 97110; 97116; 97161; 97530; 99285; A4315; C1781; G0378; J0690; J1170; J1815; J2175; J2250; J2405; J2704; J2710; J3010; J3490; J7030; J7120

== ENCOUNTER 2020-03-03 13:49 | Emergency (ER) | payer MEDICARE, BC ==
[~2020-03-03] VITALS: Ht 162.6 cm; Wt 81.8 kg
[~2020-03-03 13:49] MED LIST changes: -EZET10TA13 PO; -LEVO100T9 PO; +LEVO112T5 PO; +LOSA100T3 PO; +ZET10T PO
[2020-03-03 14:47] LABS: BASOPHILS % (AUTO) 0.7 % (0-1); EOSINOPHILS # (AUTO) 0.1 X10'3 (0-0.9); HEMATOCRIT 42.8 % (35.0-45.0); HEMOGLOBIN 14.4 g/dl (12.0-16.0); LYMPHOCYTES # (AUTO) 1.2 X10'3 (1.1-4.8); LYMPHOCYTES % (AUTO) 17.8 % (21-51); MEAN CORPUSCULAR HEMOGLOBIN 29.9 PG (27.0-31.0); MEAN CORPUSCULAR HGB CONC 33.7 g/dL (33.0-36.5); MEAN CORPUSCULAR VOLUME 88.8 FL (78-98); MEAN PLATELET VOLUME 8.6 FL (7.4-10.4); MONOCYTES # (AUTO) 0.7 X10'3 (0-0.9); MONOCYTES % (AUTO) 10.2 % (2-12); NEUTROPHILS # (AUTO) 4.6 X10'3 (1.8-7.7); NEUTROPHILS % (AUTO) 69.3 % (42-75); PLATELET COUNT 261 X10'3 (140-440); RED BLOOD COUNT 4.82 X10'6 (4.20-5.60); RED CELL DISTRIBUTION WIDTH 13.7 % (11.5-14.5); WHITE BLOOD COUNT 6.7 X10'3 (4.5-11.0)
[2020-03-03 14:58] LABS: ALANINE AMINOTRANSFERASE 15 U/L (12-78); ALBUMIN 3.9 G/DL (3.4-5.0); ALBUMIN/GLOBULIN RATIO 1.1 (1.1-1.5); ALKALINE PHOSPHATASE 68 IU/L (46-116); ANION GAP 6 (8-16); ASPARTATE AMINO TRANSFERASE 30 U/L (10-37); BILIRUBIN,TOTAL 0.4 MG/DL (0.1-1.0); BLOOD UREA NITROGEN 17 MG/DL (7-18); BUN/CREATININE RATIO 18.3 (6.6-38.0); CALCIUM 9.3 MG/DL (8.5-10.1); CHLORIDE 102 MMOL/L (99-107); CREATININE 0.93 MG/DL (0.40-0.90); GLUCOSE 135 MG/DL (70-104); POTASSIUM 3.9 MMOL/L (3.5-5.1); SODIUM 138 MMOL/L (135-145); TOTAL CARBON DIOXIDE 29.6 MMOL/L (24-32); TOTAL PROTEIN 7.3 G/DL (6.4-8.2); eGFR 58 ML/MIN
[2020-03-03 15:03] LABS: PARTIAL THROMBOPLASTIN TIME 27 SECONDS (22-32)
[2020-03-03 15:05] LABS: CLARITY,URINE SLIGHTLY CLOUDY (Clear); COLOR,URINE YELLOW (Yellow); GLUCOSE, URINE NEGATIVE (Neg); KETONES,URINE NEGATIVE (Neg); LEUKOCYTE ESTERASE ,URINE MODERATE (Neg); NITRITES, URINE POSITIVE (Neg); OCCULT BLOOD,URINE NEGATIVE (Neg); PH,URINE 6.5 (4.8-8.0); PROTEIN,URINE NEGATIVE (Neg); UA COLLECTION TYPE CLN CATCH MIDSTREAM; UROBILINOGEN,URINE 0.2 E.U/dL (0.2-1.0)
[2020-03-03 15:15] LABS: BACTERIA,URINE 4+ /HPF (Neg); MUCUS STRANDS NONE SEEN /LPF (Neg); RBC,URINE 0-2 /HPF (0-2); RENAL CELLS, URINE MODERATE /HPF; SQUAMOUS EPITHELIAL CELL,UR NONE SEEN /LPF (FEW); WBC CLUMPS,URINE FEW /HPF (NEGATIVE); WBC,URINE 30-50 /HPF (0-4)
[2020-03-03] MEDS ORDERED: CEPH500C5 PO (15:23)
[2020-03-03 15:54] VITALS: BP 135/64
== END 2020-03-03 15:56 | disposition home or self-care (01) ==
LOC: ER 13:50
DX: N39.0 Urinary tract infection, site not specified (principal); G93.41 Metabolic encephalopathy; R41.0 Disorientation, unspecified; I10 Essential (primary) hypertension; J45.909 Unspecified asthma, uncomplicated; E11.9 Type 2 diabetes mellitus without complications; E03.9 Hypothyroidism, unspecified; G89.29 Other chronic pain; Z90.710 Acquired absence of both cervix and uterus; Z98.890 Other specified postprocedural states; Z88.2 Allergy status to sulfonamides; Z88.8 Allergy status to other drugs, medicaments and biological substances; Z79.2 Long term (current) use of antibiotics; Z79.899 Other long term (current) drug therapy
CPT/HCPCS: 36415; 70450; 71045; 80053; 81001; 82948; 85025; 85610; 85730; 87077; 87088; 87186; 93005; 99285